=== PATIENT | female | born 1975 | race Caucasian/White ===

== ENCOUNTER → 2016-11-05 | Outpatient (CLI) | payer OTHER ==
[~2016-11-05] MED LIST: ACET65TA OR; ANTIBIOTIC PO; MILKSUS OR; TEMA30CA OR; VICO5TAB OR
--- NOTE | 2016-11-05 17:14 | REP ---
Clinical: Sinus congestion. Technique: [place]AnujVeliz, lateral, SMV views of the sinuses. Findings: The facial sinuses appear relatively well aerated and without obvious mucosal thickening and no fluid level or abnormal densities. The osseous structures are intact. Mild deviation to the nasal septum towards the left is suggested. Impression: Sinuses appear clear. Cannot exclude mild nasal septal deviation to the left. Signed by Mo Dykes MD 11/05/2016 05:06 P
== END ==
LOC: M LRY 16:45
PROVIDERS: ATTEND Nurse Practitioner Family
DX: R09.81 Nasal congestion (principal)

== ENCOUNTER → 2016-11-05 | Outpatient (REF) | payer OTHER | LOC: M SFHCLERA 16:41 | PROVIDERS: ATTEND Nurse Practitioner Family | DX: J02.9 Acute pharyngitis, unspecified (principal) ==

== ENCOUNTER → 2016-12-13 | Outpatient (REF) | payer OTHER | LOC: M SFHCLERA 09:39 | PROVIDERS: ATTEND Nurse Practitioner Family | DX: J06.9 Acute upper respiratory infection, unspecified (principal) ==

== ENCOUNTER → 2018-04-25 | Outpatient (REF) | payer OTHER | LOC: M SFHCLERA 11:11 | DX: J02.9 Acute pharyngitis, unspecified (principal) ==

== ENCOUNTER → 2018-08-11 | Outpatient (REF) | payer OTHER | LOC: M SFHCLERA 12:48 | PROVIDERS: ATTEND Nurse Practitioner Family | DX: J01.00 Acute maxillary sinusitis, unspecified (principal) ==

== ENCOUNTER → 2020-04-08 | Outpatient (CLI) | payer OTHER ==
--- NOTE | 2020-04-12 08:41 | REP ---
LEFT ANKLE X-RAY: HISTORY: Pain. TECHNIQUE: AP, lateral, bilateral oblique views of the left ankle. FINDINGS: Generalized age related changes are appreciated. No acute fracture or dislocation. The ankle mortise appears intact. Lateral view demonstrates moderate calcaneal heel spur. IMPRESSION: Generalized age related changes. No obvious acute fracture or dislocation identified. MTDD
== END ==
LOC: M LRY 10:56
PROVIDERS: ATTEND Physician Assistant
DX: M25.572 Pain in left ankle and joints of left foot (principal)

== ENCOUNTER → 2022-10-14 | Outpatient (CLI) | payer OTHER | LOC: M WUC 14:17 | PROVIDERS: ATTEND Student in an Organized Health Care Education/Training Program | DX: M54.9 Dorsalgia, unspecified (principal) ==

== ENCOUNTER → 2023-09-29 | Outpatient (REF) | payer OTHER ==
[2023-09-29 18:05] LABS: ALBUMIN 4.1 G/DL (3.2-5.2); ALKALINE PHOSPHATASE 74 U/L (46-116); ALT/SGPT 16 U/L (7.0-40); AST/SGOT 11 U/L (<34); BILIRUBIN,TOTAL 0.5 MG/DL (0.3-1.2); BLOOD UREA NITROGEN 11 MG/DL (9-23); CARBON DIOXIDE LEVEL 26 MMOL/L (20-31); CHLORIDE LEVEL 106 MMOL/L (98-107); CHOLESTEROL LEVEL 139 MG/DL (<200); CHOLESTEROL RISK RATIO 2.33 (<5); CREATININE FOR GFR 0.81 MG/DL (0.55-1.30); GLOMERULAR FILTRATION RATE > 60.0 (>58); GLUCOSE, FASTING 85 MG/DL (60-100); HDL CHOLESTEROL 59.5 MG/DL (>40); LDL CHOLESTEROL 59.3 MG/DL (<100); NON-HDL-C 79.5 MG/DL; POTASSIUM SERUM 4.3 MMOL/L (3.5-5.1); SODIUM LEVEL 137 MMOL/L (136-145); TOTAL PROTEIN 6.5 G/DL (5.7-8.2); TRIGLYCERIDES LEVEL 101 MG/DL (<150)
== END ==
LOC: M LABWUC 17:13
PROVIDERS: ATTEND Family Medicine
DX: E66.3 Overweight (principal)